=== PATIENT | female | born 1950 | race Two or more races ===

== ENCOUNTER 2025-03-13 16:09 | Inpatient (IN) | payer OTHER ==
[~2025-03-13] VITALS: Ht 152.4 cm; Wt 48.1 kg
[2025-03-13 16:30] VITALS: PULSE 87; RESP 20; O2SAT 93
[2025-03-13] MEDS: SODIUM CHLORIDE 0.9% 1,000 ML IV ONE ×2 (16:30→22:03)
[2025-03-13 16:49] LABS: Hematocrit 41.6 % (36.0-46.0); Hemoglobin 14.5 g/dL (12.2-16.2); Mean Corpuscular Hemoglobin 32.2 pg (28.0-32.0); Mean Corpuscular Volume 92.5 fL (80.0-100.0); Nucleated Red Blood Cells % 0.1 %
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
[2025-03-13 17:02] LABS: Potassium 3.8 mmol/L (3.5-5.1); Sodium 139 mmol/L (136-145)
[2025-03-13 17:03] LABS: Anion Gap 9 (5-15); Carbon Dioxide 23 mmol/L (20-31)
[2025-03-13 17:04] LABS: Calcium 9.1 mg/dL (8.7-10.4)
[2025-03-13 17:08] LABS: BUN/Creatinine Ratio 16.2 (10.0-20.0); Blood Urea Nitrogen 12 mg/dL (9-23)
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
[2025-03-13 17:51] LABS: Chloride 107 mmol/L (98-107); Glucose 109 mg/dL (74-106)
[2025-03-13 17:52] LABS: Acetaminophen < 2.0 UG/ML (10.0-20.0); Salicylate < 3.0 mg/dL (-30)
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
[2025-03-13 18:28] LABS: Urine Protein, UAD Negative (Negative)
[2025-03-13 18:35] LABS: Cannabinoid Screen, Urine Neg (NEGATIVE)
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
[2025-03-13 18:40] LABS: Amphetamine Screen, Urine Neg (NEGATIVE); Barbiturate Scree,Urine Neg (NEGATIVE); Benzodiazephine Screen, Urine Neg (NEGATIVE); Cocaine Screen, Urine Neg (NEGATIVE); Opiate Scree,Urine Neg (NEGATIVE); Phencyclidine Screen, Urine Neg (NEGATIVE)
[2025-03-13 19:37] VITALS: PULSE 84; RESP 18; O2SAT 94
[2025-03-14] MEDS: HYDROcodone-ACET 5/325MG TAB PO ONE (04:46)
[2025-03-14] MEDS ORDERED: ONDANSETRON HCL 4 MG/2 ML VIAL IV PRN (09:00)
[2025-03-14] MEDS ORDERED: ACETAMINOPHEN 325 MG TAB PO PRN (09:00)
[2025-03-14] MEDS: SODIUM CHLORIDE 0.9% 1,000 ML IV SCH (09:00)
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
[2025-03-14 12:34] VITALS: PULSE 81; RESP 22; O2SAT 92
[2025-03-14 17:02] VITALS: BP 99/62; PULSE 86; RESP 18; O2SAT 99
[2025-03-14 21:00] VITALS: BP 102/64; PULSE 75; RESP 20; O2SAT 97
[2025-03-15 01:00] VITALS: BP 149/80; PULSE 59; RESP 17; TEMP 97.6; O2SAT 100
[2025-03-15 05:00] VITALS: BP 108/55; PULSE 71; RESP 18; O2SAT 100
[2025-03-15 06:24] LABS: Alanine Aminotransferase 20 U/L (7-40); Albumin 3.8 g/dL (3.2-4.8); Alkaline Phosphatase 93 U/L (46-116); Anion Gap 8 (5-15); BUN/Creatinine Ratio 16.2 (10.0-20.0); Blood Urea Nitrogen 11 mg/dL (9-23); Calcium 8.8 mg/dL (8.7-10.4); Carbon Dioxide 25 mmol/L (20-31); Chloride 107 mmol/L (98-107); Glucose 90 mg/dL (74-106); Potassium 3.7 mmol/L (3.5-5.1); Sodium 140 mmol/L (136-145); Total Protein 6.4 g/dL (5.7-8.2)
[2025-03-15 06:25] LABS: Hematocrit 39.2 % (36.0-46.0); Hemoglobin 14.0 g/dL (12.2-16.2); Mean Corpuscular Hemoglobin 32.9 pg (28.0-32.0); Mean Corpuscular Volume 91.8 fL (80.0-100.0); Nucleated Red Blood Cells % 0.1 %
[2025-03-15 06:32] LABS: Bilirubin, Total 1.2 mg/dL (0.2-1.0)
[2025-03-15 08:40] VITALS: BP 92/55; PULSE 63; RESP 16; TEMP 98.1; O2SAT 93
[2025-03-15 12:33] VITALS: BP 95/62; PULSE 82; RESP 16; TEMP 98; O2SAT 95
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
[2025-03-15 16:36] VITALS: BP 100/62; PULSE 63; RESP 16; TEMP 97.9; O2SAT 95
[2025-03-15] MEDS ORDERED: ACET-1079 PO (16:56)
[2025-03-15] MEDS ORDERED: BACL5TAB2 PO (16:56)
[2025-03-15] MEDS ORDERED: IBU600T PO (16:56)
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
[2025-03-15 17:49] VITALS: BP 100/62; PULSE 62; RESP 16; TEMP 97.9; O2SAT 96
== END 2025-03-15 19:00 | disposition home or self-care (01) | DRG 556 ==
LOC: ER 16:09 → EDBD 16:09 → OVERFLOW 03-14 08:48 → WEST WING 03-14 13:43
DX: M79.18 Myalgia, other site (principal); Z66 Do not resuscitate; Z79.899 Other long term (current) drug therapy; V89.2XXA Person injured in unspecified motor-vehicle accident, traffic, initial encounter; Y93.89 Activity, other specified; Y92.410 Unspecified street and highway as the place of occurrence of the external cause; Y99.8 Other external cause status
CPT/HCPCS: 36415; 70450; 71045; 73110; 73562; 80048; 80053; 80307; 80320; 80329; 81001; 82140; 85025; 96360; 96361; 99291; G0378